=== PATIENT | female | born 1980 | race Caucasian/White ===

== ENCOUNTER 2017-08-23 01:00 | Emergency (ER) | payer SELFPAY ==
[2017-08-23] MEDS ORDERED: Morphine 4 MG/ML VIAL ONE (01:42)
[2017-08-23] MEDS ORDERED: Ondansetron ODT 8 MG TAB ONE (01:42)
[2017-08-23] MEDS ORDERED: HYDROcodone/Acetaminophen 5/325 mg Tablet ONE (03:49)
--- NOTE | 2017-08-23 08:29 | ULT ---
PRELIMINARY REPORT/[facility]/EMERGENTY AFTER-HOURS PROCEDURE US Pelvis Complete, Transabdominal US Duplex Arterial/Venous of the Pelvis, Complete CLINICAL HISTORY: 36 years old, female; Pain and signs and symptoms; Other: N/v/d x 4 days; Pelvic pain; Patient HX: Rl q pain x 2 days; Additional info: HX: Ovarian cysts, paragard iud TECHNIQUE: Real-time transabdominal pelvic ultrasound (complete) with image documentation. Real-time duplex ultr asound scan of the arterial and venous flow of the pelvis with color Doppler flow and spectral wavefo rm analysis. COMPARISON: No relevant prior studies available. FINDINGS: Transabdominal ultrasound of the pelvis was performed. Duplex ultrasound scan with color Doppler flow and spectral waveform analysis was also performed for evaluation of pelvic and ovarian blood flow an d torsion. Uterus/cervix: Probable low-lying IUD. Endometrium measures 1.3 cm in thickness. No myometrial mass. Right ovary: Right ovarian dominant follicle measuring up to 2 cm. No acute findings. Normal blood fl ow. No evidence of torsion. Left ovary: No acute findings. No mass. Normal blood flow. No evidence of torsion. Free fluid: No free fluid. Other findings: Appendix is not visualized within the right lower quadrant. IMPRESSION: Probable low-lying IUD. Thickened endometrium; correlate with menstrual cycle. Nonvisualization of the appendix. Further evaluation can be performed with CT if indicated. Thank you for allowing us to participate in the care of your patient. Dictated and Authenticated by: Leodan Bourne MD 08/23/2017 3:20 AM Central Time ([place] & [place]) ULTRASOUND PELVIC WITH DOPPLER TRANSABDOMINAL EXAM: Date: 08/23/17 HISTORY: Pelvic pain. Right lower quadrant pain. Nausea and vomiting. FINDINGS: Uterus measures 10.6 x 5.5 x 8.4 cm. Endometrial thickness 1.3 cm. Intrauterine device is in place, l ikely low lying. Right ovary measures 3.4 x 3.0 x 3.1 cm. Left ovary measures 3.8 x 2.6 x 3.4 cm. There is a 6.0 x 2.0 x 1.3 cm right ovarian cyst. No significant free fluid. IMPRESSION: Concordant with preliminary report. CODE: BIPIN POS: [facility]
== END 2017-08-23 04:12 | disposition home or self-care (01) ==
LOC: ERS 01:00
DX: R10.31 Right lower quadrant pain (principal); E03.9 Hypothyroidism, unspecified; I10 Essential (primary) hypertension; F32.9 Major depressive disorder, single episode, unspecified; Z87.891 Personal history of nicotine dependence; Z79.899 Other long term (current) drug therapy
CPT/HCPCS: 76856; 93976; 96361; 96374; J2270

== ENCOUNTER 2017-11-02 13:38 | Emergency (ER) | payer SELFPAY ==
[2017-11-02 14:14] LABS: Bilirubin Negative (Negative); Blood, Urine Large (Negative); Clarity CLOUDY (Clear); Glucose, Urine (Dipstick) Negative (Negative); Leukocyte Moderate (Negative); Nitrite Negative (Negative); Pregnancy Test - Urine (BHCG) Negative (Negative); Pregu Control Background? CLEAR/WHITE (CLR/WHITE); Pregu Control Bar Appear? YES (CONTROL BAR); Protein, Urine (Dipstick) Negative (Neg-Trace); Specific Gravity 1.009 (1.002-1.036); Specific Gravity, Urine 1.009 (1.002-1.036); Urobilinogen 0.2 mg/dL (0.2-1.0); pH, Urine 6.5 (5.0-9.0)
[2017-11-02 14:16] LABS: Bacteria/HPF Rare-Few HPF (None Seen); Hyaline Casts/LPF 0-3 HYALINE CAST LPF (0-3 Hyaline); Pathc Cast-AUWi Flag 0.43 (0-2.49)
[2017-11-02 14:39] LABS: #Eosinphils 0.2 thou/uL (0.0-0.7); #Lymphocytes 1.6 thou/uL (1.20-3.40); #Monocytes 0.4 thou/uL (0.11-0.59); #Neutrophils 4.2 thou/uL (1.40-6.50); %Basophils 0.6 % (0.0-1.0); %Eosinophils 3.4 % (0.0-10.0); %Lymphocytes 24.5 % (21.0-51.0); %Monocytes 6.3 % (0.0-10.0); %Neutrophils 65.2 % (42.0-75.0); Hemoglobin 13.4 g/dL (12.0-16.0); Mean Corpuscular HGB CONC 33.4 g/dL (32.0-36.0); Mean Corpuscular Hemoglobin 28.6 pg (27.0-31.0); Mean Corpuscular Volume 85.7 fL (78.0-98.0); Mean Platelet Volume 6.2 fL (7.4-10.4); Platelet Count 319 thou/uL (130-400); RBC Distribution Width 11.9 % (11.5-14.5); Red Blood Cell (RBC) Count 4.67 mill/uL (4.20-5.40); White Blood Cell (WBC) Count 6.4 thou/uL (4.8-10.8)
[2017-11-02] MEDS ORDERED: Ondansetron ODT 4 MG TAB ONE ×3 (14:39→14:42)
[2017-11-02] MEDS ORDERED: Ketorolac Tromethamine 30 MG/ML VIAL ONE (14:39)
[2017-11-02 14:58] LABS: ALT (SGPT) 17 U/L (8-55); AST (SGOT) 18 U/L (5-34); Albumin 4.4 g/dL (3.5-5.0); Alkaline Phosphatase 62 U/L (40-150); Anion Gap 12 mmol/L (10-20); BUN (Urea Nitrogen) 15 mg/dL (7.0-18.7); Bilirubin, Total 0.2 mg/dL (0.2-1.2); Calc. Creatinine Clearance 0 mL/min (70-130); Calcium 9.4 mg/dL (7.8-10.44); Carbon Dioxide 25 mmol/L (22-29); Chloride 105 mmol/L (98-107); Estimated GFR-MDRD 82; Globulin 3.6 g/dL (2.4-3.5); Glucose 81 mg/dL (70-105); Lipase 22 U/L (8-78); Sodium 138 mmol/L (136-145)
--- NOTE | 2017-11-02 15:36 | CT ---
CT ABDOMEN WITHOUT CONTRAST CT PELVIS WITHOUT CONTRAST: HISTORY: One week of right upper quadrant pain. Pain radiating down the right flank. COMPARISON: None. TECHNIQUE: Abdomen and pelvic CT are performed without IV or oral contrast. Coronal reformatted images are subm itted for interpretation. FINDINGS: ABDOMEN CT: Lung bases are clear. Heart size is normal. No pericardial effusion. The descending thoracic aorta and abdominal aorta quinn ve a normal caliber. No periaortic fat stranding. The gallbladder is surgically absent. Limited evaluation of the solid organs by the lack of IV contrast. Grossly, the liver, spleen, pancr eas, and adrenal glands are unremarkable. No gastrohepatic, retrocrural, or periportal lymphadenopathy. No mesenteric mass, lymphadenopathy, free air, or free fluid. There are some borderline nonspecific lymph nodes in the right lower quadrant. [employer] lymph node measures 0.9 cm in maximum dimens ion. Limited evaluation of the alimentary canal due to lack of oral contrast. Gastric mucosa, duodenum, a nd multiple normal-caliber small bowel loops are noted. The ileocecal junction is normal. Appendix is not appreciated. Nevertheless, no inflammation at the apex of the cecum. Scattered fecal materia l in nondistended, nondilated colon. Bilaterally, no hydronephrosis, nephrolithiasis, or perinephric fat stranding. Bilateral ureters hav e a normal caliber. No hydroureter, periureteral fat stranding, or ureterolithiasis. PELVIC CT: No mass, lymphadenopathy, free air, or free fluid. The urinary bladder is unremarkable. Uterus and adnexal structures are grossly unremarkable. Intrauterine device is noted. No lytic or blastic lesions in the osseous structures. IMPRESSION: 1. No evidence of nephrolithiasis or obstructive uropathy. 2. No evidence of bowel obstruction. 3. Appendix is not appreciated. Nevertheless, no inflammatory changes of the cecal apex. POS: [facility]
[2017-11-02] MEDS ORDERED: traMADol HCl 50 MG TAB ONE (16:16)
[2017-11-02] MEDS ORDERED: cefTRIAXone\\ROCEPHIN 1 GM VIAL ONE (16:16)
== END 2017-11-02 16:17 | disposition home or self-care (01) ==
LOC: ERS 13:38
DX: N39.0 Urinary tract infection, site not specified (principal); M54.9 Dorsalgia, unspecified; I10 Essential (primary) hypertension; E03.9 Hypothyroidism, unspecified; F32.9 Major depressive disorder, single episode, unspecified; Z79.899 Other long term (current) drug therapy; Z87.891 Personal history of nicotine dependence
CPT/HCPCS: 74176; 80053; 81003; 81015; 81025; 83690; 85025; 87086; 96361; 96374; 96375; J0696; J1885; Q0162

== ENCOUNTER 2017-12-08 17:35 | Emergency (ER) | payer SELFPAY ==
[2017-12-08] MEDS ORDERED: Ondansetron HCl/PF 4 MG/2 ML Vial ONE (18:09)
[2017-12-08] MEDS ORDERED: Morphine 4 MG/ML Carpuject ONE (18:09)
[2017-12-08 18:12] LABS: #Basophils 0.1 thou/uL (0.0-0.2); #Eosinphils 0.2 thou/uL (0.0-0.7); #Lymphocytes 2.2 thou/uL (1.20-3.40); #Monocytes 0.6 thou/uL (0.11-0.59); %Basophils 0.7 % (0.0-1.0); %Eosinophils 2.1 % (0.0-10.0); %Lymphocytes 24.3 % (21.0-51.0); %Monocytes 6.8 % (0.0-10.0); %Neutrophils 66.1 % (42.0-75.0); Hemoglobin 13.3 g/dL (12.0-16.0); Mean Corpuscular HGB CONC 35.5 g/dL (32.0-36.0); Mean Corpuscular Hemoglobin 29.2 pg (27.0-31.0); Mean Corpuscular Volume 82.4 fL (78.0-98.0); Platelet Count 294 thou/uL (130-400); RBC Distribution Width 11.3 % (11.5-14.5); Red Blood Cell (RBC) Count 4.54 mill/uL (4.20-5.40); White Blood Cell (WBC) Count 9.1 thou/uL (4.8-10.8)
[2017-12-08 18:13] LABS: Bilirubin Negative (Negative); Blood, Urine Negative (Negative); Clarity Slightly Cloudy (Clear); Glucose, Urine (Dipstick) Negative (Negative); Leukocyte Negative (Negative); Nitrite Negative (Negative); Protein, Urine (Dipstick) 30 mg/dL (Neg-Trace); Urobilinogen 0.2 mg/dL (0.2-1.0); pH, Urine 7.5 (5.0-9.0)
[2017-12-08 18:14] LABS: Pregnancy Test - Urine (BHCG) Negative (Negative)
[2017-12-08 18:15] LABS: Pregu Control Background? CLEAR/WHITE (CLR/WHITE); Pregu Control Bar Appear? YES (CONTROL BAR)
[2017-12-08 18:17] LABS: Bacteria/HPF 1+ HPF (None Seen); Hyaline Casts/LPF 0-3 HYALINE CAST LPF (0-3 Hyaline); RBC/HPF 0-3 HPF (0-3); WBC/HPF 0-3 HPF (0-3)
[2017-12-08 18:25] LABS: ALT (SGPT) 60 U/L (8-55); AST (SGOT) 27 U/L (5-34); Albumin 4.2 g/dL (3.5-5.0); Alkaline Phosphatase 73 U/L (40-150); Anion Gap 15 mmol/L (10-20); BUN (Urea Nitrogen) 8 mg/dL (7.0-18.7); Bilirubin, Total 0.3 mg/dL (0.2-1.2); Calc. Creatinine Clearance 0 mL/min (70-130); Calcium 9.7 mg/dL (7.8-10.44); Carbon Dioxide 22 mmol/L (22-29); Chloride 106 mmol/L (98-107); Estimated GFR-MDRD 85; Globulin 3.2 g/dL (2.4-3.5); Glucose 104 mg/dL (70-105); Potassium 3.8 mmol/L (3.5-5.1); Protein, Total 7.4 g/dL (6.0-8.3); Sodium 139 mmol/L (136-145)
[2017-12-08] MEDS ORDERED: Ketorolac Tromethamine 30 MG/ML VIAL ONE (19:38)
--- NOTE | 2017-12-08 20:15 | MRI ---
MRI OF THE LUMBAR SPINE 12/08/17 PROVIDED CLINICAL HISTORY: Back pain and right leg pain. FINDINGS: Five lumbar vertebral bodies are assumed. Lumbar alignment appears normal. Vertebral body heights maryellen ear preserved. No focal concerning regional marrow signal abnormality is evident. The visualized extr aspinal soft tissues demonstrate no significant abnormality. There is mild bilateral facet arthritis at L4-5. There is a broad based disc bulge and mild bilateral facet arthritis at L5-S1. There is no s ignificant central canal or foraminal narrowing apparent throughout the lumbar spine. IMPRESSION: Lower lumbar disc and facet degenerative change without significant central canal or foraminal narrow ing apparent. Please see concurrently dictated MRI thoracic spine for details regarding the lower tho racic spine. POS: [facility]
[2017-12-08] MEDS ORDERED: Morphine 4 MG/ML VIAL ONE (20:25)
--- NOTE | 2017-12-08 20:25 | MRI ---
MRI THORACIC SPINE 12/08/17 PROVIDED CLINICAL HISTORY: Back pain and right leg pain. FINDINGS: thoracic alignment appears normal. Vertebral body heights appear preserved. No focal concerning regio nal marrow signal abnormality is evident. Evaluation is limited on the basis of patient motion. There is no gross abnormality of signal involving the thoracic spinal cord. The axial images are significa ntly degraded by patient motion. At T11-12, there is a central disc herniation which produces effacement of the ventral subarachnoid s pace and mild flattening of the ventral cord. There is no significant foraminal narrowing apparent. At T12-L1, there is a broad based disc bulge without significant central canal or foraminal narrowing apparent. Minimal disc desiccation and loss of disc space height at T8-9. 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 POS: [facility]
--- NOTE | 2017-12-08 20:34 | MRI ---
MRI OF THE CERVICAL SPINE: 12/08/17 PROVIDED CLINICAL HISTORY: Back and right leg pain. FINDINGS: Evaluation is limited as the axial spin echo fluid sensitive sequences were obtained with an incorrec tly positioned saturation band, obscuring the central canal and foramina. Cervical alignment appears normal. The visualized posterior fossa, cervicomedullary junction and cerv ical spinal cord appear grossly normal with limitations in evaluating the cord due to lack of convent ional spin echo axial images with fluid sensitivity. There is no focal concerning regional marrow signal abnormality evident. C2-3 appears unremarkable. At C3-4, there is a broad based disc bulge and right sided uncinate process hypertrophy. There is eff acement of the ventral subarachnoid space with approximation of the ventral cord. No definite cord co ntact or signal abnormality. There is a broad based disc bulge at C4-5 with no significant central canal or foraminal narrowing ap parent. At C5-6, there is a broad based disc bulge without significant central canal or foraminal narrowing a pparent. At C6-7, there is a broad based disc bulge which produces effacement of the ventral subarachnoid spac e and mild flattening of the ventral cord. There is prominent bilateral foraminal narrowing suspected . At C7-T1, there is no significant central canal or foraminal narrowing apparent. IMPRESSION: Limited examination as described above. Evidence for central canal and foraminal narrowing as describ ed above, most conspicuously at C6-7. POS: [facility]
== END 2017-12-08 20:45 | disposition home or self-care (01) ==
LOC: SCSER 17:35
DX: M51.24 Other intervertebral disc displacement, thoracic region (principal); M50.20 Other cervical disc displacement, unspecified cervical region; M54.41 Lumbago with sciatica, right side; E03.9 Hypothyroidism, unspecified; I10 Essential (primary) hypertension; F32.9 Major depressive disorder, single episode, unspecified; Z87.891 Personal history of nicotine dependence; Z79.899 Other long term (current) drug therapy
CPT/HCPCS: 72141; 72146; 72148; 80053; 81003; 81015; 81025; 85025; 96374; 96375; 96376; J1885; J2270; J2405